=== PATIENT | female | born 1995 | race Caucasian/White ===

== ENCOUNTER 2016-05-19 19:42 | Outpatient (CLI) | payer OTHER, MEDICAID ==
[~2016-05-19] VITALS: Ht 165.1 cm; Wt 105.0 kg
[2016-05-19] MEDS ORDERED: PRENTAB55 PO (19:52)
[2016-05-19 19:53] VITALS: BP 139/76
--- NOTE | 2016-05-19 23:59 | HPE ---
DATE OF ADMISSION: 05/19/2016 20-year-old 1, para 0, LMP 07/01/2015, EDC 05/18/2016, at 40 and 1 weeks of gestation, comes in with a history of contractions, irregular in nature, apparently 3-5 minutes apart, moderate intensity. Her labs show O positive, HIV negative, Hepatitis negative, RPR negative, rubella immune. Varicella nonimmune. Pap shows LGSIL for repeat . Urine negative. Gonorrhea and chlamydia negative. One hour early glucose was 101, 1-hour glucose of 28 repeat was 97. GBS is negative. CF was declined but RNA testing was done and was normal. On examination in no distress. Symphysis fundus height is 40. Four quadrant bowel sounds. Vertex OP, -3, thick, closed and high. No loss of fluid. No vaginal bleeding. Category one strip on the monitor. Urine is 10/10, trace with leukocyte esterase, some trace protein. Temperature 97.6, blood pressure initially was 139/76, repeated with a different cuff 126/78, respirations 18, pulse 118. The rest of the examination is unremarkable. She is normocephalic, atraumatic. Neck: Full range of motion. Pupils equal and reactive to light. Distal pulses symmetric. No evidence of DVT, PE or superficial phlebitis. Chest is clear bilaterally to bases. No wheezes or rhonchi. No CVA tenderness. Uterus is nontender. Symphysis fundus height is appropriate. Four quadrant bowel sounds are noted. No rashes, lesions or pruritus. No arthralgia or myalgia. No complaints of cough, wheezing, or shortness breath or dyspnea on exertion. No chest pain. No bleeding. Neuro complete. No incontinency, urgency, or frequency. No nausea, vomiting, diarrhea or constipation. She has no diabetic issues in the [employer] effort. She has allergy. KEZIA for repeat Pap and possible colposcopy . She does not smoke or drink, does not abuse drugs. She is . There is no domestic violence. In summary, we have a lady with uterine irritability. Follow up the examination one hour later reveals a category one strip. No contractions and no evidence of decelerations or accelerations were noted. The patient was discharged for Saturday followup for induction of labor.
== END 2016-05-19 21:50 | disposition home or self-care (01) ==
LOC: M LDO 19:42
PROVIDERS: ATTEND Obstetrics & Gynecology
DX: O26.893 Other specified pregnancy related conditions, third trimester (principal); Z3A.40 40 weeks gestation of pregnancy; O62.0 Primary inadequate contractions; Z88.0 Allergy status to penicillin

== ENCOUNTER 2016-05-21 09:15 | Outpatient (CLI) | payer OTHER ==
[~2016-05-21] VITALS: Ht 165.1 cm; Wt 106.0 kg
[2016-05-21] VITALS (9 sets, daily range): BP systolic 100–167; BP diastolic 55–110
[~2016-05-21 09:15] MED LIST: PRENTAB55 PO
[2016-05-21] MEDS ORDERED: MOM30SS PO (09:35)
[2016-05-21 10:35] LABS: MEAN CORPUSCULAR HEMOGLOBIN 29.2 pg (27.0-33.0); MEAN CORPUSCULAR HGB CONC 34.5 g/dl (32.0-36.5); MEAN CORPUSCULAR VOLUME 84.6 fl (80.0-96.0); RED CELL DISTRIBUTION WIDTH 12.7 % (11.5-14.5); WHITE BLOOD COUNT 10.7 K/mm3 (4.0-10.0)
[2016-05-21 10:52] LABS: ALBUMIN 2.8 GM/DL (3.2-5.2); ALBUMIN/GLOBULIN RATIO 0.85 (1.00-1.93); ALKALINE PHOSPHATASE 317 U/L (45-117); ALT/SGPT 39 U/L (12-78); ANION GAP 11 MEQ/L (8-16); AST/SGOT 28 U/L (15-37); BILIRUBIN,TOTAL 0.3 MG/DL (0.2-1.0); BLOOD UREA NITROGEN 8 MG/DL (7-18); CALCIUM LEVEL 8.8 MG/DL (8.5-10.1); CARBON DIOXIDE LEVEL 22 MEQ/L (21-32); CHLORIDE LEVEL 105 MEQ/L (98-107); CREATININE FOR GFR 0.63 MG/DL (0.55-1.02); GLOMERULAR FILTRATION RATE > 60.0 (>60); GLUCOSE, FASTING 90 MG/DL (70-105); POTASSIUM SERUM 4.1 MEQ/L (3.5-5.1); SODIUM LEVEL 138 MEQ/L (136-145); TOTAL PROTEIN 6.1 GM/DL (6.4-8.2)
--- NOTE | 2016-05-21 12:48 | IPNPDOC ---
Text Note Date of Service The patient was seen on 05/21/16. NOTE L&D Triage Subjective: Jason is a 20yo with a choi IUP at 40w3d by LMP c/w 6 week US who is being referred to triage from clinic. Pt was being seen at routine OB appt and had mild range BP and was sent to triage for a PIH workup. She denies preeclampsia sx. She has no complaints. ROS: Admits- Gross movement, good oral hydration Denies- CTXs, Vaginal bleeding, fevers, chills, N/V, diarrhea, dysuria, HERNANDEZ, SOB , RUQ pain, visual changes Objective: VS: Initial bps with smaller cuff read mild range with one severe range when the cuff actually popped off. However, using appropriately sized cuff (patient weighs 239lb), solidly normotensive bps for 2 hours straight with no further elevated bps CAT I FHRT: moderate variability, pos accels, neg decels. Argos: ctx q3-7min not felt by patient Physical Exam- General: WDWN gravid female in NAD Mental : AAOx3 Abdominal: Gravid abdomen without guarding or tenderness. Extremity: trace edema in LE bilaterally TAUS: positive FCA and FM, choi IUP, cephalic presentation, posterior placenta, IRMA 14.3cm. Labs: protein:creatinine ratio: 0.135 H/H 13.1/38, plt 269 Creatinine 0.63, ALT 39, AST 28 Assessment: Jason is a 20yo with a choi IUP at 40w3d by LMP c/w 6 week US without evidence of pre-eclampsia. Normotensive x2 hours with appropriately sized cuff. Vitals stable and physical exam without abnormalities without s/sx of preeclampsia. Cat I tracing w/regular ctx not felt by patient. She was only 1cm dilated in clinic and had membranes swept. IRMA 14.3cm with cephalic presentation. Plan: - Discharge to home - Pt will come to clinic tomorrow for blood pressure check. Induction date scheduled for 05/24 for LTG, if elevated bps tomorrow with appropriately sized cuff, would proceed with IOL tomorrow -Strong return precautions given for unremitting headache/vision changes and labor precautions MD Frantz Stratton VS,Edi, I+O VS, Edi, I+O Laboratory Tests 3/27/17 10:21 Calcium Level 8.8, Aspartate Amino Transf (AST/SGOT) 28, Alanine Aminotransferase (ALT/SGPT) 39, Alkaline Phosphatase 317 H, Total Bilirubin 0.3 , Total Protein 6.1 L, Albumin 2.8 L, Red Blood Count 4.49, Mean Corpuscular Volume 84.6, Mean Corpuscular Hemoglobin 29.2, Mean Corpuscular Hemoglobin Concent 34.5, Red Cell Distribution Width 12.7 Vital Signs Date Time Temp Pulse Resp B/P Pulse Ox O2 Delivery O2 Flow Rate FiO2 05/21/16 11:30 100 100/60 05/21/16 09:31 18 05/21/16 09:30 98.1 Room Air LEOPOLDO PREEZ MD May 21, 2016 12:48
== END 2016-05-21 12:40 | disposition home or self-care (01) ==
LOC: M LDO 09:15
PROVIDERS: ATTEND Obstetrics & Gynecology
DX: O26.893 Other specified pregnancy related conditions, third trimester (principal); Z3A.40 40 weeks gestation of pregnancy; R03.0 Elevated blood-pressure reading, without diagnosis of hypertension

== ENCOUNTER 2016-05-24 14:54 | Inpatient (IN) | payer OTHER ==
[2016-05-24] VITALS (13 sets, daily range): BP systolic 110–145; BP diastolic 53–96
[~2016-05-24] VITALS: Ht 165.1 cm; Wt 107.0 kg
[~2016-05-24 14:54] MED LIST changes: +MOM30SS PO
[2016-05-24] MEDS ORDERED: ANTA500C PO (15:15)
[2016-05-24] MEDS ORDERED: TYLE325T5 PO (15:15)
--- NOTE | 2016-05-24 16:06 | HPEPDOC ---
Obstetrical History & Physical General Date of Admission May 24, 2016 at 14:54 History of Present Illness 20 yo G1 @ 40+6 by 6 wk US. CYNDIE- [id number]. Presents to L&D for scheduled IOL d/t pending post-dates and elevated BPs. Denies DFM, LOF, CTXs, VB, HERNANDEZ, n/v, visual changes and RUQ pain. GBS negative. Chief Complaint: Induction of labor Information Provided By: Patient Age: 20 : 1 Care Care: Good Care Number of Visits: 15 Dating Final EDC: May 18, 2016 Final EDC for Daily Update: May 18, 2016 Final EDC by: 1st trimester (US) LMP: Aug 02, 2015 1st Trimester Date: Sep 27, 2015 Weeks + Days: 6.4 Estimated Date of Confinement: May 18, 2016 EGA at Admission: 40.6 Antepartum Course Diagnos(e)s 1. varicella non-immune 2. smoker - quit at 3 months of 3. obesity 4. excessive wt gain Height (inches): 65 Pre- weight (lbs.): 208 Admission Weight (lbs.): 239 Change in Weight (lbs.): 31 Past Medical History Past Obstetrical History : Past Obstetrical History: Primgravida ANIMAL DOCTOR History: No pertinent history Past Medical History Medical History migraines; obesity; medullary sponge kidney disease; Surgical History: Denies/None Family History Significant Family History: Other (Brother born with tetralogy of fallot) Social History Social history to [place] Marital Status: Family situation: Spouse/partner home Psychosocial History: No pertinent psych hx * Smoker: former Smoker (Quit smoking at 3 months of ) Alcohol: Denies Drugs: denies Abuse Violence Screening Have you been hit/kicked/slapp: No Have you been sexually assault: No Imunizations Tdap status: current (05MAR2016) Influenza Status: current (19DEC2015) Allergies Uncoded Allergies: N (Allergy, Unknown, 08/31/02) PCN-HIVES, N/V (Allergy, Unknown, 08/31/02) Medications Scheduled Multivitamins/ ( 19) 1 Tab Tab 1 TAB PO DAILY Scheduled PRN Acetaminophen (Tylenol) 325 Mg Tab 650 MG PO PRN PRN PRN PAIN Calcium Carbonate (Antacid) 500 Mg Chw 500 MG PO PRN PRN PRN HEARTBURN Physical Examination Physical Examination GENERAL: A&O x 3 BREAST: ABDOMEN: Gravid, non-tender FETUS: VTX by Celestine and SVE SVE: 1/thick/-2 HEART RATE: RRR, no m/r/g LUNGS: CTA EXTREMITIES: +1 pitting LE edema. No clonus. DTRs +2 EFW- 3600 gms Vital Signs/I&O Vital Signs Date Time Temp Pulse Resp B/P Pulse Ox O2 Delivery O2 Flow Rate FiO2 05/24/16 15:08 103 18 137/96 Laboratory Data 24H LABS Laboratory Tests 2 05/24/16 15:40: Serology Scanned Report Hepatitis B Testing CBC/BMP 15.8/13.9/40.9/281 Urine Culture: Other (mixed anand) Pertinent Laboratoy Data Blood Type: O+ RBC Antibody Screen: Negative HIV: Negative Hepatitis B: Negative Hepatitis C: Unknown Rapid Plasma Reagin: Nonreactive Rubella: Immune Varicella: Nonreactive Chlamydia/Gonorrhea: Negative Group B Streptococcus: Negative Cystic Fibrosis: Unknown Anatomy Ultrasound Ultrasound Date: Dec 30, 2015 Placenta Location: Posterior Normal Anatomy: Yes Placenta Previa: No Estimated Weight (grams): 347 Steroid Therapy Steroid Therapy: No Vaginal Examination Dilation: 1cm Effacement: 0-30% Station: -3 Cervical Consistency: Medium Cervical Position: Middle Presentation: Cephalic presentation Position: Vertex (occiput) Assessment Heart Rate (FHR): 120 Variability: Minimal to moderate Accelerations: Positive Decelerations: None Tocometer Contractions: No Strength: resting tone palp/soft Multi-drug resistant Organism: No history of MDRO Assessment/Plan Assessment 20 yo G1 @ 40+6 by 6 wk US. CYNDIE- [id number]. Presents to L&D for scheduled IOL d/t pending post-dates with elevated BPs. Denies DFM, LOF, CTXs, VB, HERNANDEZ, n/v, visual changes and RUQ pain. GBS negative. Plan Admit and orient. Human Resources Benefits Administrator and consent. Diet: clear liquid GBS negative Labs per protocol + pre-e labs Saline lock IV now balloon placed during SVE with 60 ml saline Anticipate C-S as appropriate. JB RYAN CNM May 24, 2016 16:06
[2016-05-24 17:02] LABS: MEAN CORPUSCULAR HEMOGLOBIN 29.1 pg (27.0-33.0); MEAN CORPUSCULAR HGB CONC 33.5 g/dl (32.0-36.5); MEAN CORPUSCULAR VOLUME 86.7 fl (80.0-96.0); RED CELL DISTRIBUTION WIDTH 12.8 % (11.5-14.5); WHITE BLOOD COUNT 11.1 K/mm3 (4.0-10.0)
[2016-05-24 17:15] LABS: ALBUMIN 3.1 GM/DL (3.2-5.2); ALBUMIN/GLOBULIN RATIO 0.84 (1.00-1.93); ALKALINE PHOSPHATASE 345 U/L (45-117); ALT/SGPT 47 U/L (12-78); ANION GAP 11 MEQ/L (8-16); AST/SGOT 39 U/L (15-37); BILIRUBIN,TOTAL 0.3 MG/DL (0.2-1.0); BLOOD UREA NITROGEN 6 MG/DL (7-18); CARBON DIOXIDE LEVEL 22 MEQ/L (21-32); CHLORIDE LEVEL 106 MEQ/L (98-107); CREATININE FOR GFR 0.67 MG/DL (0.55-1.02); GLOMERULAR FILTRATION RATE > 60.0 (>60); GLUCOSE, FASTING 89 MG/DL (70-105); POTASSIUM SERUM 4.5 MEQ/L (3.5-5.1); SODIUM LEVEL 139 MEQ/L (136-145); TOTAL PROTEIN 6.8 GM/DL (6.4-8.2); URIC ACID 3.9 MG/DL (2.6-6.0)
[2016-05-24] MEDS ORDERED: ACETAMINOPHEN 500 MG TAB PO ONE (17:45)
[2016-05-24] MEDS ORDERED: OXYTOCIN DRIP 30 UNITS in APPROPRIATE DILUENT 1 EA IV SCH (20:15)
[2016-05-25] VITALS (60 sets, daily range): BP systolic 100–162; BP diastolic 53–99
[2016-05-25] MEDS ORDERED: NALBUPHINE HCL 10 MG/ML AMP (J2300) IM ONE (16:30)
[2016-05-25] MEDS ORDERED: NALBUPHINE HCL 10 MG/ML AMP (J2300) IV PRN (16:30)
[2016-05-25] MEDS ORDERED: FENTANYL 2MCG/ML ROPIVACAINE 0.2% IN 0.9% NACL 200ML IVBAG As Ordered ONE (19:58)
[2016-05-25] MEDS ORDERED: REFRIGERATOR IV KEYS XX PRN (21:15)
[2016-05-25] MEDS ORDERED: ONDANSETRON 4MG/2ML VIAL (J2405) IV PRN (21:15)
[2016-05-25] MEDS ORDERED: EPIDURAL COMMENT XX SCH (21:15)
[2016-05-25] MEDS ORDERED: FENTANYL/ROPIVACAINE/NACL BAG 200 ML EPIDURAL SCH (21:15)
[2016-05-25] MEDS ORDERED: NALOXONE INJ 0.4 MG/1 ML VIAL (J2310) IV PRN (21:15)
[2016-05-25] MEDS ORDERED: diphenhydrAMINE INJ 50MG/ML VIAL (J1200) IV PRN (21:15)
[2016-05-25] MEDS ORDERED: ePHEDrine SULFATE 25 MG/5 ML(5MG/ML) SYRINGE IV PRN (21:15)
[2016-05-25] MEDS ORDERED: EPIDURAL/PCA KEYS XX PRN (21:15)
[2016-05-25] MEDS ORDERED: LACTATED RINGER'S 1000 ML IV PRN (21:15)
[2016-05-26] VITALS (14 sets, daily range): BP systolic 116–142; BP diastolic 61–99
--- NOTE | 2016-05-26 01:24 | IPNPDOC ---
Text Note Date of Service The patient was seen on 05/26/16. NOTE Jason is comfortable with epidural. Reports feeling occasional slight " pressure in her bottom". SCE now C/C/0. Did trial of pushing with four ctx but no real progress- she doesn't feel where to push well. Cat I tracing. IUPC removed since tip was by head and not working effectively. Will do passive descent in [facility] for 1 hour. Will have anesthesia provider turn down epidural so pt can feel where to push better. Dr. Leopoldo Corbett MD VS,Edi, I+O VS, Edi, I+O Vital Signs Date Time Temp Pulse Resp B/P Pulse Ox O2 Delivery O2 Flow Rate FiO2 05/26/16 00:16 98.7 76 16 116/63 I&O- Last 24 Hours up to 6 AM 05/26/16 06:00 Intake Total 940 ml Output Total 500 ml Balance 440 ml LEOPOLDO CORBETT MD May 26, 2016 01:24
[2016-05-26] MEDS ORDERED: OXYTOCIN DRIP 30 UNITS in APPROPRIATE DILUENT 1 EA IV SCH (03:24)
[2016-05-26] MEDS ORDERED: DOCUSATE SODIUM 100 MG CAP PO PRN (03:30)
[2016-05-26] MEDS ORDERED: RHOGAM 300 MCG (1500 IU) INJ (J2790) IM SCH (03:30)
[2016-05-26] MEDS ORDERED: ACETAMINOPHEN 500 MG TAB PO PRN (03:30)
[2016-05-26] MEDS ORDERED: MEASLES,MUMPS,RUBELLA VACCINE INJ (MMR-II) (90707) SC SCH (03:30)
[2016-05-26] MEDS ORDERED: IBUPROFEN 800 MG TAB PO PRN (03:30)
--- NOTE | 2016-05-26 03:31 | DNPDOC ---
Delivery Note Delivery Note DATE OF DELIVERY: May 26, 2016 at 0300 PREDELIVERY DIAGNOSIS: 41w0d induction of labor for late term gestation, new diagnosis of gestational hypertension POST DELIVERY DIAGNOSIS: Delivered. PROCEDURE: Spontaneous vaginal delivery COLLECTION CLERK: Dr. Leopoldo Corbett MD ANESTHESIA: epidural ESTIMATED BLOOD LOSS: 250 mL. FINDINGS: 8 pound 2 ounce male , Score 8/9, nuchal cord times one DELIVERY SUMMARY: Jason is a 20yo G1 now P1001 who was admitted to L&D for induction of labor secondary to late term gestation with new diagnosis of gestational hypertension on arrival. She had an uncomplicated of a viable male infant at 0300 on 26 May 2016 at 41w0d. Head delivered OP, restituted LOP. One loose nuchal cord manually reduced. Right anterior shoulder delivered followed by posterior shoulder and corpus. Cord clamped x2 and cut by FOB. Infant mouth/nares bulb suctioned. Spontaneous cry noted. Baby placed on mother's abdomen. Apgars 8/9, weight 8lb2oz or 3686g. Cord blood obtained due to maternal blood type of O pos. With gentle downward guidance and suprapubic pressure, placenta delivered spontaneously and intact with a centrally inserted cord. Fundal massage until both uterine fundus and lower uterine segment firm; fundus at U-1. Pitocin 30 units IV bolus administered. Inspection of perineum and vaginal wall revealed superficial periurethral abrasion closed with one figure of eight using 4.0 vicryl suture with good hemostasis. Mom and infant in stable condition. Dr. Leopoldo Corbett MD [place] MD May 26, 2016 03:31
[2016-05-26] MEDS: LR 1,000 ML IV SCH ×2 (04:04→12:04)
[2016-05-26] MEDS ORDERED: miSOPROStol 200 MCG TAB (S0191) As Ordered ONE (06:49)
[2016-05-26] MEDS ORDERED: miSOPROStol 200 MCG TAB (S0191) PR ONE (07:45)
[2016-05-26] MEDS: PRENATAL VITAMIN TAB PO SCH (10:12)
[2016-05-26] MEDS: FAMOTIDINE 20 MG TAB PO SCH (13:15)
[2016-05-27 06:19] VITALS: BP 114/55
[2016-05-27] MEDS: PRENATAL VITAMIN TAB PO SCH (08:22)
[2016-05-27] MEDS: FAMOTIDINE 20 MG TAB PO SCH (08:23)
[2016-05-27 18:00] VITALS: BP 140/81
[2016-05-28 06:07] VITALS: BP_SYST 108; BP_SYST 111; BP_DIAS 56; BP_DIAS 65
[2016-05-28] MEDS: PRENATAL VITAMIN TAB PO SCH (08:33)
[2016-05-28] MEDS: FAMOTIDINE 20 MG TAB PO SCH (08:33)
--- NOTE | 2016-05-28 08:43 | IPNPDOC ---
Text Note Date of Service The patient was seen on 05/28/16. NOTE PPD 2 Jason is a 20y/o [id number] s/p after iol for late term gestation with diagnosis of GHTN on admission. She is . Lochia normal, spontaneously voiding and ambulating without difficulty. Tolerating regular diet. Denies f/c/n/v/SOB/CP/HERNANDEZ/abdominal pain. Vitals wnl (occasional mild range bp), afebrile Exam: General: WDWN, NAD, resting comfortably Abdomen: soft, NTTP, fundus firm u-2cm Extremities: no tenderness of calves bilaterally Assessment: Jason is a 20y/o [id number] s/p after iol for late term gestation with diagnosis of GHTN on admission. Vitals wnl (occasional mild range bp), benign exam. Meeting all milestones. No e/o infection, hemodynamically stable. No s/sx of pre-eclampsia. Plan: -discharge to home with follow up in clinic in 1 week for blood pressure check then routine 6 week visit, patient knows to call to schedule -home meds already given from clinic stock: keven and georgi Corbett MD [place] VS,Edi, I+O VS, Sethe, I+O Vital Signs Date Time Temp Pulse Resp B/P Pulse Ox O2 Delivery O2 Flow Rate FiO2 05/28/16 06:07 97.5 72 18 108/56 97 Room Air LEOPOLDO CORBETT MD May 28, 2016 08:43
[2016-05-28] MEDS ORDERED: IBUP-1114 PO (09:33)
== END 2016-05-28 12:20 | disposition home or self-care (01) | DRG 775 ==
LOC: M LDI 14:54 → M OBS 05-26 05:25
PROVIDERS: ADMIT Midwife; ATTEND Midwife
PROC: 3E033VJ Introduction of Other Hormone into Peripheral Vein, Percutaneous Approach (ICD-10-PCS; 2016-05-24)
PROC: 10E0XZZ Delivery of Products of Conception, External Approach (ICD-10-PCS; principal; 2016-05-26)
DX: O48.0 Post-term pregnancy (principal); Z37.0 Single live birth; Z3A.40 40 weeks gestation of pregnancy; Z88.0 Allergy status to penicillin; Z79.899 Other long term (current) drug therapy; Z87.891 Personal history of nicotine dependence; O13.4 Gestational [pregnancy-induced] hypertension without significant proteinuria, complicating childbirth; O69.82X0 Labor and delivery complicated by other cord entanglement, without compression, not applicable or unspecified

== ENCOUNTER 2020-07-30 11:41 | Emergency (ER) | payer OTHER ==
[~2020-07-30] VITALS: Ht 165.1 cm; Wt 105.5 kg
[~2020-07-30 11:41] MED LIST changes: +CALC1CHW3 PO; +IBUP-1114 PO; +TYLE325T5 PO
[2020-07-30 11:42] VITALS: BP 133/78
[2020-07-30] MEDS ORDERED: BACT800T5 PO (12:43)
== END 2020-07-30 12:56 | disposition home or self-care (01) ==
LOC: M ED 11:41
DX: L02.213 Cutaneous abscess of chest wall (principal); Z88.0 Allergy status to penicillin